=== PATIENT | male | born 1965 | race Caucasian/White ===

== ENCOUNTER 2022-08-30 11:08 | Emergency (ER) | payer MEDICARE ==
[2022-08-30] MEDS ORDERED: Ondansetron 4 MG/2 ML SDV IVPUSH ONE (11:36)
[2022-08-30] MEDS ORDERED: fentaNYL 100 MCG/2 ML SDV IVPUSH ONE ×2 (11:36→12:58)
[2022-08-30] MEDS ORDERED: Lactated Ringers 1,000 ML IV SCH (11:45)
[2022-08-30 11:53] LABS: BASOPHILS ABSOLUTE AUTO 0.04 K/uL (0.00-0.10); BASOPHILS PERCENT AUTO 0.4 % (0.1-1.3); EOSINOPHILS ABSOLUTE AUTO 0.32 K/uL (0.00-0.40); EOSINOPHILS PERCENT AUTO 2.9 % (0.0-5.4); HEMATOCRIT 39.1 % (38.4-49.7); HEMOGLOBIN 13.4 g/dL (12.9-16.9); IMMATURE GRAN ABSOLUTE AUTO 0.03 K/uL (0.00-0.23); IMMATURE GRAN PERCENT AUTO 0.3 % (0.0-0.7); LYMPHOCYTES ABSOLUTE AUTO 1.44 K/uL (0.8-3.3); LYMPHOCYTES PERCENT AUTO 13.1 % (11.4-47.7); MEAN CORPUSCULAR HEMOGLOBIN 30.6 pg (31.6-35.5); MEAN CORPUSCULAR HGB CONC 34.3 g/dL (31.6-35.5); MEAN CORPUSCULAR VOLUME 89.3 fL (81.4-99.0); MONOCYTES ABSOLUTE AUTO 0.58 K/uL (0.20-0.90); MONOCYTES PERCENT AUTO 5.3 % (3.3-12.6); NEUTROPHILS ABSOLUTE AUTO 8.58 K/uL (1.0-7.6); PLATELET COUNT,PLT 138 K/uL (130-375); RED BLOOD CELL COUNT 4.38 M/uL (4.14-5.76)
[2022-08-30 12:12] LABS: A/G RATIO 0.9 (1.2-2.2); ALANINE AMINOTRANSFERASE,ALT 26 U/L (12-78); ALBUMIN 3.6 g/dL (3.4-5.0); ALKALINE PHOSPHATASE 101 U/L (46-116); ASPARTATE AMNIOTRANSFERASE,AST 18 U/L (15-37); BILIRUBIN TOTAL 0.5 mg/dL (0.2-1.0); BLOOD UREA NITROGEN,BUN 8 mg/dL (7-18); CALCIUM 8.7 mg/dL (8.5-10.1); CARBON DIOXIDE,CO2 25 mmol/L (21-32); CHLORIDE,CL 105 mmol/L (100-108); CREATININE 0.8 mg/dL (0.8-1.3); EST CRCL DRUG DOSING (CG) 97.54 mL/min; ESTIMATED GFR 105 mL/min (>60); GLUCOSE RANDOM 99 mg/dL (74-106); MAGNESIUM 1.8 mg/dL (1.8-2.4); POTASSIUM,K 3.7 mmol/L (3.6-5.2); PROTEIN TOTAL,TP 7.6 g/dL (6.4-8.2); SODIUM,NA 139 mmol/L (140-148)
[2022-08-30 12:20] LABS: ANION GAP 12.7 mmol/L (5.0-14.0)
[2022-08-30] MEDS: Sodium Chloride 0.9% 10 ML Syringe FLUSH PRN ×2 (12:30→12:59)
[2022-08-30] MEDS ORDERED: niCARdipine HCl 25 MG in Sodium Chloride 0.9% 240 ML IV SCH (13:00)
== END 2022-08-30 13:15 ==
LOC: JP.ED 11:08
DX: I60.9 Nontraumatic subarachnoid hemorrhage, unspecified (principal); E78.00 Pure hypercholesterolemia, unspecified; I10 Essential (primary) hypertension; Z72.0 Tobacco use; Z91.030 Bee allergy status; Z88.5 Allergy status to narcotic agent; Z79.899 Other long term (current) drug therapy
CPT/HCPCS: 36415; 70450; 80053; 83605; 83735; 85025; 96374; 96375; 99291; J2405; J3010; J3490; J7050; J7120

== ENCOUNTER 2022-10-28 19:11 | Emergency (ER) | payer MEDICARE ==
[2022-10-28] MEDS ORDERED: Sodium Chloride 0.9% 10 ML Syringe FLUSH PRN (19:21)
[2022-10-28 19:35] LABS: BASOPHILS ABSOLUTE AUTO 0.04 K/uL (0.00-0.10); BASOPHILS PERCENT AUTO 0.4 % (0.1-1.3); EOSINOPHILS ABSOLUTE AUTO 0.32 K/uL (0.00-0.40); EOSINOPHILS PERCENT AUTO 3.1 % (0.0-5.4); HEMATOCRIT 42.3 % (38.4-49.7); HEMOGLOBIN 14.2 g/dL (12.9-16.9); IMMATURE GRAN ABSOLUTE AUTO 0.03 K/uL (0.00-0.23); IMMATURE GRAN PERCENT AUTO 0.3 % (0.0-0.7); LYMPHOCYTES ABSOLUTE AUTO 2.46 K/uL (0.8-3.3); LYMPHOCYTES PERCENT AUTO 23.8 % (11.4-47.7); MEAN CORPUSCULAR HEMOGLOBIN 30.7 pg (31.6-35.5); MEAN CORPUSCULAR HGB CONC 33.6 g/dL (31.6-35.5); MEAN CORPUSCULAR VOLUME 91.6 fL (81.4-99.0); MONOCYTES ABSOLUTE AUTO 0.77 K/uL (0.20-0.90); MONOCYTES PERCENT AUTO 7.4 % (3.3-12.6); NEUTROPHILS ABSOLUTE AUTO 6.72 K/uL (1.0-7.6); PLATELET COUNT,PLT 382 K/uL (130-375); RED BLOOD CELL COUNT 4.62 M/uL (4.14-5.76); WHITE BLOOD CELL COUNT,WBC 10.3 K/uL (3.2-11.0)
[2022-10-28] MEDS ORDERED: Iopamidol 755 Mg/ML 100 ML Bottle IV SCH (19:45)
[2022-10-28] MEDS ORDERED: Sodium Chloride 0.9% 100 ML IV SCH (19:45)
[2022-10-28 19:54] LABS: PROTHROMBIN TIME 9.9 sec (9.2-10.6); PTT,PARTIAL THROMBOPLSTIN TIME 24.9 sec (21.8-27.3)
[2022-10-28 19:57] LABS: A/G RATIO 0.9 (1.2-2.2); ALANINE AMINOTRANSFERASE,ALT 33 U/L (12-78); ALKALINE PHOSPHATASE 142 U/L (46-116); ANION GAP 9.7 mmol/L (5.0-14.0); ASPARTATE AMNIOTRANSFERASE,AST 21 U/L (15-37); BILIRUBIN TOTAL 0.3 mg/dL (0.2-1.0); BLOOD UREA NITROGEN,BUN 7 mg/dL (7-18); CALCIUM 8.8 mg/dL (8.5-10.1); CARBON DIOXIDE,CO2 28 mmol/L (21-32); CHLORIDE,CL 103 mmol/L (100-108); EST CRCL DRUG DOSING (CG) 75.32 mL/min; ESTIMATED GFR 89 mL/min (>60); GLUCOSE RANDOM 120 mg/dL (74-106); POTASSIUM,K 3.6 mmol/L (3.6-5.2); PROTEIN TOTAL,TP 8.4 g/dL (6.4-8.2); SODIUM,NA 141 mmol/L (140-148); TROPONIN I HIGH SENSITIVITY 17.5 pg/mL (<=60.3)
== END 2022-10-28 21:57 | disposition home or self-care (01) ==
LOC: JP.ED 19:11
DX: R42 Dizziness and giddiness (principal); E78.00 Pure hypercholesterolemia, unspecified; J45.909 Unspecified asthma, uncomplicated; I10 Essential (primary) hypertension; Z86.16 Personal history of COVID-19; Z88.5 Allergy status to narcotic agent; Z91.030 Bee allergy status; Z72.0 Tobacco use
CPT/HCPCS: 36415; 70450; 70496; 70498; 80053; 82947; 84484; 85025; 85610; 85730; 93005; 99284; J3490; Q9967

== ENCOUNTER 2023-05-26 13:06 | Emergency (ER) | payer MEDICARE ==
[2023-05-26] MEDS: Lidocaine 1% 5 ML VIAL INJECT ONE (15:52)
== END 2023-05-26 16:59 | disposition home or self-care (01) ==
LOC: JP.ED 13:06
DX: S60.551A Superficial foreign body of right hand, initial encounter (principal); F17.210 Nicotine dependence, cigarettes, uncomplicated; E78.00 Pure hypercholesterolemia, unspecified; I10 Essential (primary) hypertension; Z90.49 Acquired absence of other specified parts of digestive tract; Z86.19 Personal history of other infectious and parasitic diseases; Z91.030 Bee allergy status; Z90.13 Acquired absence of bilateral breasts and nipples; Z88.8 Allergy status to other drugs, medicaments and biological substances; W45.8XXA Other foreign body or object entering through skin, initial encounter
CPT/HCPCS: 99283